=== PATIENT | male | born 1955 | race Caucasian/White ===

== ENCOUNTER 2018-04-29 07:48 | Inpatient (IN) ==
[2018-04-29] MEDS ORDERED: Vancomycin Inj 1,000 MG in Sodium Chlor 0.9% Inj 250 ML IV.SIG ONE (08:15)
[2018-04-29] MEDS ORDERED: Piperacil/Tazo 3.375 GM Premix 3.375 GM/50 ML PIGGYBACK IV.SIG ONE (08:17)
--- NOTE | 2018-04-29 08:28 | ED ---
HPI General Chief complaint: Urogenital-Male Stated complaint: Genital complaint Time Seen by Provider: 04/29/18 08:07 Source: patient Mode of arrival: ambulatory Limitations: no limitations History of Present Illness HPI Narrative: 62-year-old male complaint pain and swelling on the right scrotum. Patient was admitted to [facility] March 19 and discharge March 22 with diagnosis of orchitis. Patient was seen in emergency room as outpatient on March 10 with diagnosis of bronchitis. Patient discharged home with prescription for Levaquin and later switched to Macrobid. Patient was seen by urologist subsequently and put on Bactrim DS. Patient eventually was admitted to [facility] on March 19 for IV antibiotic. Patient was given IV Cipro and discharged on prescription for Cipro 500 mg 3 times a day for 1 month. Patient was seen by Dr. Junior 2 days ago because of blister forming and has pus drainage from the right scrotum recently. Patient was advised to go back to the hospital to be admitted. Patient finally came to the ED today. Patient denies any fever chills. Patient states that he has intermittent sharp pain localized to right scrotum. Patient denies any pain radiation. Patient denies any dysuria or urethral discharge. Patient has history of hypertension and hyperlipidemia. MD Complaint: Reports testicle pain and testicle swelling Onset (ago): week(s) Duration: constant Location: Reports right testicle Severity: mild Quality: Reports sharp Relieving factors: none Exacerbating factors: none Reports swelling and mass Related Data Home Medications Medication Instructions Recorded Confirmed benazepril 40 mg PO BID 03/10/18 04/29/18 lovastatin 10 mg PO DAILY 03/19/18 04/29/18 temazepam 30 mg PO HS PRN 03/20/18 04/29/18 Previous Rx's Medication Instructions Recorded amlodipine 10 mg PO DAILY #30 tab 03/22/18 Allergies Allergy/AdvReac Type Severity Reaction Status Date / Time No Known Allergies Allergy Verified 04/29/18 08:02 Review of Systems ROS: all other systems reviewed are negative [facility] Medical History Medical History HTN (hypertension) (Acute) High cholesterol (Acute) Surgical History Surgical History No history of previous surgery (Acute) Social History Social History Substance History: No History of Abuse Second Hand Smoke Exposure: No Smoking Status: Never smoker How Often Do You Have a Drink Containing Alcohol: Never Recent Travel in [place] within the Last 8 Weeks: No Recent Out of Country Travel within the Last 8 Weeks: No Immunization History Tetanus Immunization: Unsure Exam Narrative Exam Narrative: GENERAL: Well-nourished, well-developed patient. SKIN: Focused skin assessment warm/dry. HEAD: Normocephalic. EYES: No scleral icterus. No injection or drainage. NECK: Supple, trachea midline. No JVD or lymphadenopathy. CARDIOVASCULAR: Regular rate and rhythm without murmurs, gallops, or rubs. RESPIRATORY: Breath sounds equal bilaterally. No accessory muscle use. GASTROINTESTINAL: Abdomen soft, non-tender, nondistended. MUSCULOSKELETAL: No cyanosis, or edema. BACK: Nontender without obvious deformity. No CVA tenderness. exam: Patient has soft tissue mass right scrotum with 2 ulcer lesions with drainage. Moderate tenderness on palpation. Course Initial Documented Vital Signs Temperature 98.1 F 04/29/18 07:50 Pulse Rate 77 04/29/18 07:50 Respiratory Rate 17 04/29/18 07:50 Blood Pressure 160/91 H 04/29/18 07:50 Pulse Oximetry 98 04/29/18 07:50 Last Documented Vital Signs Temperature 98.1 F 04/29/18 07:50 Pulse Rate 60 04/29/18 11:49 Respiratory Rate 16 04/29/18 11:49 Blood Pressure 170/94 H 04/29/18 11:49 Pulse Oximetry 99 04/29/18 09:28 Medical Decision Making MDM Narrative Medical decision making narrative: 62-year-old male with pain swelling and drainage right scrotum. Patient with history of right orchitis and just finished Cipro antibiotic treatment. Vancomycin 1 g IV. Zosyn 3.375 g IV. Medical Screen Exam Complete: Yes Emergency Medical Condition: Yes Differential Diagnosis Differential Diagnosis: Differential diagnosis including cellulitis, abscess, orchitis. Lab Data Result diagrams: 04/29/18 08:27 04/29/18 08:27 Lab Results 04/29/18 04/29/18 04/29/18 Range/Units 08:27 08:27 11:59 WBC 6.0 (4.0-11.0) th/mm3 RBC 5.29 (4.50-5.90) mil/mm3 Hgb 16.2 (13.0-17.0) gm/dL Hct 47.9 (39.0-51.0) % MCV 90.7 (80.0-100.0) fL MCH 30.6 (27.0-34.0) pg MCHC 33.8 (32.0-36.0) % RDW 14.7 (11.6-17.2) % Plt Count 223 (150-450) th/mm3 MPV 8.7 (7.0-11.0) fL Neut % (Auto) 74.9 H (16.0-70.0) % Lymph % (Auto) 16.9 (9.0-44.0) % [place] % (Auto) 5.5 (0.0-8.0) % Eos % (Auto) 1.5 (0.0-4.0) % Baso % (Auto) 1.2 (0.0-2.0) % Neut # (Auto) 4.5 (1.8-7.7) th/mm3 Lymph # (Auto) 1.0 (1.0-4.8) th/mm3 [place] # (Auto) 0.3 (0.0-0.9) th/mm3 Eos # (Auto) 0.1 (0.0-0.4) th/mm3 Baso # (Auto) 0.1 (0.0-0.2) th/mm3 WBC Differential . Differential Comment Auto diff final Sodium 142 (136-145) meq/L Potassium 3.6 (3.5-5.1) meq/L Chloride 110 H (98-107) meq/L Carbon Dioxide 23.5 (21.0-32.0) meq/L Anion Gap 9 (5-15) meq/L BUN 20 H (7-18) mg/dL Creatinine 1.01 (0.60-1.30) mg/dL Estimated GFR 74 L (>89) mL/min Random Glucose 85 (74-106) mg/dL Calcium 9.3 (8.5-10.1) mg/dL Total Bilirubin 0.8 (0.2-1.0) mg/dL AST 17 (15-37) U/L ALT 28 (12-78) U/L Alkaline Phosphatase 97 (45-117) U/L Total Protein 8.2 (6.4-8.2) g/dL Albumin 4.2 (3.4-5.0) g/dL Urine Color Straw (Yellw/Straw) Urine Clarity Clear (Clear) Urine pH 7.0 (5.0-8.5) Ur Specific [place] 1.014 (1.002-1.035) Urine Protein Negative (Neg-Trace) mg/dL Urine Glucose (UA) Negative (Negative) mg/dL Urine Ketones Negative (Negative) mg/dL Urine Occult Blood Negative (Negative) Urine Nitrate Negative (Negative) Urine Bilirubin Negative (Negative) Urine Urobilinogen Less than 2 (Less than 2) mg/dL Ur Leukocyte Esterase Negative (Negative) Urine RBC Less than 1 (0-3) /hpf Urine WBC 1 (0-5) /hpf Ur Squamous Epith Cells <1 (0-5) /hpf Urine Mucus Few H (Occasional) /lpf Micro UA Comment Culture not ind Ur Microscopic Review Not Reportable Urine Culture Comments Culture not ind Imaging Data Radiologist's impression: Scrotum Ultrasound 04/29/18 08:18 CONCLUSION: 1. Abnormal right testicle. Neoplasm is suspected 2. Normal left testicle Discharge Plan Discharge Disposition Patient Disposition: ED Admit(ED Internal Use Only) Discharge Order Discharge Orders: ED Use Only Admit Order (Routine); Ordered 04/29/18 Ordered By: Efrain Lee Discharge Details Diagnosis: Mass of right testicle, Orchitis Physicians Team ED Provider: Efrain Lee Primary Care Provider: Elia Calabrese Attending Provider: Zuhair Acevedo Other Providers: Jaret Amezquita Discharge Interventions Interventions: Vital Signs Last Done: 04/29/18 09:28 ED Discharge Assessment Last Done: 04/29/18 16:25 Status ED Status: Admitted Patient
[2018-04-29 08:43] LABS: Baso # (Auto) 0.1 th/mm3 (0.0-0.2); Baso % (Auto) 1.2 % (0.0-2.0); Eos # (Auto) 0.1 th/mm3 (0.0-0.4); Eos % (Auto) 1.5 % (0.0-4.0); Hematocrit 47.9 % (39.0-51.0); Hemoglobin 16.2 gm/dL (13.0-17.0); Lymph % (Auto) 16.9 % (9.0-44.0); Mean Corpuscular HGB Conc 33.8 % (32.0-36.0); Mean Corpuscular Hemoglobin 30.6 pg (27.0-34.0); Mean Corpuscular Volume 90.7 fL (80.0-100.0); Mean Platelet Volume 8.7 fL (7.0-11.0); Mono # (Auto) 0.3 th/mm3 (0.0-0.9); Mono % (Auto) 5.5 % (0.0-8.0); Neut # (Auto) 4.5 th/mm3 (1.8-7.7); Neut % (Auto) 74.9 % (16.0-70.0); Platelet Count 223 th/mm3 (150-450); Red Blood Count 5.29 mil/mm3 (4.50-5.90); Red Cell Distribution Width 14.7 % (11.6-17.2)
[2018-04-29 09:00] LABS: Alanine Aminotransferase 28 U/L (12-78); Albumin 4.2 g/dL (3.4-5.0); Anion Gap 9 meq/L (5-15); Aspartate Aminotransferase 17 U/L (15-37); Blood Urea Nitrogen 20 mg/dL (7-18); Calcium 9.3 mg/dL (8.5-10.1); Carbon Dioxide 23.5 meq/L (21.0-32.0); Chloride 110 meq/L (98-107); Glomerular Filtration Rate 74 mL/min (>89); Glucose,Random 85 mg/dL (74-106); Potassium 3.6 meq/L (3.5-5.1); Sodium 142 meq/L (136-145)
[2018-04-29 09:03] LABS: Alkaline Phosphatase 97 U/L (45-117); Total Protein 8.2 g/dL (6.4-8.2)
--- NOTE | 2018-04-29 10:34 | US ---
EXAM DATE: 04/29/2018 10:15 AM EST AGE/SEX: 62 years / Male INDICATIONS: Right testicular mass with pain and swelling. CLINICAL DATA: This is the patient's subsequent encounter. Patient reports that signs and symptoms h ave been present for 1 month and indicates a pain score of 6/10. MEDICAL/SURGICAL HISTORY: . Hyperlipidemia. Hypertension. None. COMPARISON: [facility] [place], US TESTICLES W DOPPLER, 03/20/2018. . MEASUREMENTS: Right Testicle:__5.6 x 3.3 x 3.7 cm Left Testicle:__4.2 x 2.4 x 3.0 cm FINDINGS: RIGHT: Diffusely heterogeneous right testicle with hyperemia. Focal mass is suspected that appears to have s pread beyond the testicle.. Trace hydrocele LEFT: Testicle: Homogeneous echotexture without intra or extratesticular mass. Blood flow is symmetric and within normal limits. Epididymis: Within normal limits. Hydrocele: Small hydrocele present. Varicocele: No evidence of varicocele. Scrotum: Diffuse thickening of scrotal skin. CONCLUSION: 1. Abnormal right testicle. Neoplasm is suspected 2. Normal left testicle Electronically signed by: Mp Vaughn MD Board Certified Radiologist 04/29/2018 10:33 AM EST
[2018-04-29] MEDS ORDERED: Acetaminophen 325 MG Tablet PO PRN (11:49)
[2018-04-29] MEDS ORDERED: Vancomycin Consult Pharmacy OTHER PRN (11:51)
--- NOTE | 2018-04-29 11:52 | P.HPIM ---
History of Present Illness Primary Care Physician: Elia Calabrese MD Chief Complaint: infection of the right scotum History of Present Illness: patient is a 62 y/o male with history of hypertension and dyslipidemia who presented with infection of the right scrotum. he says that it started about a month and half ago when he was diagnosed with orchitis. he says that he was treated with IV antibiotics and then he was placed on a month of Cipro which he finished about ten seven-eight days ago. he says that few days ago he noticed some drainage from the right scrotum for which he saw who advised him to come to the hospital. he denies any fever,chills or pain. Inpatient Certification Inpatient Certification: I certify that the inpatient services were ordered in accordance with Medicare regulations governing the order. This includes certification that hospital inpatient services are reasonable and necessary and in the case of services not specified as inpatient-only under 42 CFR 419.22(n), that they are appropriately provided as inpatient services in accordance to with the 2-midnight benchmark under 43 CFR 412.3(e) Estimated Total Length of Stay (Days): 2 Plans for Post Hospital Care: Home Review of Systems Review of Systems: all other systems reviewed are negative [facility] Medical History Medical History HTN (hypertension) (Acute) High cholesterol (Acute) Surgical History Surgical History No history of previous surgery (Acute) Social History Social History Substance History: No History of Abuse Second Hand Smoke Exposure: No Smoking Status: Never smoker How Often Do You Have a Drink Containing Alcohol: Never Recent Travel in [place] within the Last 8 Weeks: No Recent Out of Country Travel within the Last 8 Weeks: No Immunization History Tetanus Immunization: Unsure Medications and Allergies Allergies Allergy/AdvReac Type Severity Reaction Status Date / Time No Known Allergies Allergy Verified 04/29/18 08:02 Home Medications Medication Instructions Recorded Confirmed Type benazepril 40 mg PO BID 03/10/18 04/29/18 History lovastatin 10 mg PO DAILY 03/19/18 04/29/18 History temazepam 30 mg PO HS PRN 03/20/18 04/29/18 History Active Medications: Active Medications Acetaminophen (Tylenol) 650 mg PO Q4H PRN PRN Reason: fever/pain Sodium Chloride (Ns Inj) 1,000 mls @ 100 mls/hr IV.CONT .Q10H [place] Physical Exam Vital signs: Vital Signs 04/29/18 07:50 04/29/18 09:28 Temperature 98.1 F Pulse Rate 77 52 L Respiratory Rate 17 16 Blood Pressure 160/91 H 164/94 H Pulse Oximetry 98 99 Intake & Output 04/28/18 04/29/18 04/29/18 18:59 06:59 18:59 Intake Total 300 / 300 Balance 300 / 300 Weight 72.575 kg Intake: IV 300 / 300 Zosyn 3.375 GM Premix 3.375 gm 50 / 50 In 50 ml @ 100 mls/hr IV.SIG ONCE ONE Rx#:[id number] Vancomycin Inj 1,000 MG In NS 250 / 250 Inj 250 ML @ 250 mls/hr IV.SIG ONCE ONE Rx#:[id number] Constitutional no acute distress Routine HEENT Exam Eye: Present PERRL Routine Neck Exam Present supple Routine Respiratory Exam Present CTA bilaterally Routine Cardiovascular Exam Present RRR Routine Abdominal Exam Present soft Routine Exam Scrotal: Present swelling and erythema Comments: right scrotum is swollen with mild drainage. Routine Extremities Exam Comments: no pedal edema. Routine Neurological Exam Present alert and oriented X3 Results Labs CBC & Chem 7: 04/29/18 08:27 04/29/18 08:27 Imaging Impressions Scrotum Ultrasound 04/29/18 08:18 CONCLUSION: 1. Abnormal right testicle. Neoplasm is suspected 2. Normal left testicle Caprini VTE Risk Assessment Caprini VTE Risk Assessment: Moderate/High Risk (score >= 2) Caprini Risk Assessment Model: Point Value = 1 Point Value = 2 Point Value = 3 Point Value = 5 Age 41-60 Minor surgery BMI > 25 kg/m2 Swollen legs Varicose veins or History of unexplained or recurrent spontaneous Oral contraceptives or hormone replacement Sepsis (< 1 month) Serious lung disease, including pneumonia (< 1 month) Abnormal pulmonary function Acute myocardial infarction Congestive heart failure (< 1 month) History of inflammatory bowel disease Medical patient at bed rest Age 61-74 Arthroscopic surgery Major open surgery (> 45 min) Laparoscopic surgery (> 45 min) Malignancy Confined to bed (> 72 hours) Immobilizing plaster cast Central venous access Age >= 75 History of VTE Family history of VTE Factor V Leiden Prothrombin [id number] Lupus anticoagulant Anticardiolipin antibodies Elevated serum homocysteine Heparin-induced thrombocytopenia Other congenital or acquired thrombophilia Stroke (< 1 month) Elective arthroplasty Hip, pelvis, or leg fracture Acute spinal cord injury (< 1 month) Prophylaxis Regimen: Total Risk Factor Score Risk Level Prophylaxis Regimen 0-1 Low Early ambulation 2 Moderate Order ONE of the following: *Sequential Compression Device (SCD) *Heparin 5000 units SQ BID 3-4 Higher Order ONE of the following medications: *Heparin 5000 units SQ TID *Enoxaparin/Lovenox 40 mg SQ daily (WT < 150 kg, CrCl > 30 mL/min) *Enoxaparin/Lovenox 30 mg SQ daily (WT < 150 kg, CrCl > 10-29 mL/min) *Enoxaparin/Lovenox 30 mg SQ BID (WT < 150 kg, CrCl > 30 mL/min) AND/OR *Sequential Compression Device (SCD) 5 or more Highest Order ONE of the following medications: *Heparin 5000 units SQ TID (Preferred with Epidurals) *Enoxaparin/Lovenox 40 mg SQ daily (WT < 150 kg, CrCl > 30 mL/min) *Enoxaparin/Lovenox 30 mg SQ daily (WT < 150 kg, CrCl > 10-29 mL/min) *Enoxaparin/Lovenox 30 mg SQ BID (WT < 150 kg, CrCl > 30 mL/min) AND *Sequential Compression Device (SCD) Assessment and Plan Plan A/P - possible right testicular neoplasm vs orchitis continue with broad-spectrum IV antibiotics and follow the cultures. will consult Urology. patient has been recently treated for orchitis. -hypertension/ dyslipidemia resume home meds. -DVT prophylaxis; subq Lovenox. Discussed Condition With: ER physician and the patient. Discharge Planning: home - pending urology evaluation.
[2018-04-29] MEDS: Sod Chloride 0.9% Inj 1,000 ML IV.CONT SCH ×2 (11:59→21:34)
[2018-04-29 12:19] LABS: Bilirubin,Urine Negative (Negative); Clarity,Urine Clear (Clear); Color,Urine Straw (Yellw/Straw); Glucose,Urine (UA) Negative (Negative); Leukocyte Esterase,Urine Negative (Negative); Mucus,Urine Few /lpf (Occasional); Nitrite,Urine Negative (Negative); Specific Gravity,Urine 1.014 (1.002-1.035); Squamous Epithelial Cell,Urine <1 /hpf (0-5)
[2018-04-29] MEDS: Lisinopril 20 MG Tablet PO SCH (12:47)
[2018-04-29] MEDS: Piperacil/Tazo 3.375 GM Premix 3.375 GM/50 ML PIGGYBACK IV.SIG SCH ×2 (14:54→21:33)
[2018-04-29] MEDS: Temazepam 15 MG Capsule PO PRN (21:33)
[2018-04-29] MEDS: Vancomycin Inj 1,250 MG in Sodium Chlor 0.9% Inj 250 ML IV.SIG SCH (21:34)
--- NOTE | 2018-04-29 22:48 | P.CONURO ---
History of Present Illness Service: Med Consult date: 04/29/18 Requesting Physician: Zuhair Acevedo Reason for Consult: Orchitis, draining pus, RT scrotum Primary Care Provider: Elia Calabrese MD Chief Complaint: infection of the right scotum History of Present Illness: Admitted from ED with hard, painless swelling of RT testicle and cord and purulent drainage from RT scrotum. Was Rxed in 2018 [place] x 3-4 days with IV antibiotics for orchitis. Had more swelling then than now. He was followed by Urologist, Dr. Rob Diaz then. No problem with LFT testicle, groins, or abdomen. Testicular US shows a heterogeneous RT testicle with distorted anatomy in and outside of the testicle. Possible mass effect. LFT testicle WNL. Patient in no pain, afebrile, not septic. WBC WNL. UA Neg. [place] Neg. 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 His Medicare A&B start in 6 days. [facility] - History History Provided By: Patient, Medical Record - Medical History Medical History: Medical History (Last Reviewed 04/29/18 @ 11:56 by Zuhair Acevedo MD) HTN (hypertension) High cholesterol - Surgical History Surgical History: Surgical History (Last Reviewed 04/29/18 @ 11:56 by Zuhair Acevedo MD) No history of previous surgery - Social History I have reviewed the patient's Social History: Yes - Tobacco History Second Hand Smoke Exposure: No Smoking Status: Never smoker - Alcohol History How Often Do You Have a Drink Containing Alcohol: Never - Substance Use History Substance History: No History of Abuse - Travel History Recent Travel in the [place] Within the Last 8 Weeks: No Recent Travel Out of the Country Within the Last 8 Weeks: No - Immunization History Tetanus Immunization: Unsure Hx Influenza Vaccine This Season: No Medications and Allergies Active Medications: Active Medications Acetaminophen (Tylenol) 650 mg PO Q4H PRN PRN Reason: fever/pain Amlodipine Besylate (Norvasc) 10 mg PO DAILY [place] Enalaprilat (Vasotec Inj) 1.25 mg IV.PUSH Q8H PRN PRN Reason: SBP> 180 or DBP > 100 Last Admin: 04/29/18 18:19 Dose: 1.25 mg Sodium Chloride (Ns Inj) 1,000 mls @ 100 mls/hr IV.CONT .Q10H [facility] Last Admin: 04/29/18 21:34 Dose: 100 mls/hr Piperacillin/Tazobactam/Dextrose (Zosyn 3.375 Gm Premix) 3.375 gm in 50 mls @ 100 mls/hr IV.SIG Q8H [place] Last Admin: 04/29/18 21:33 Dose: 100 mls/hr Vancomycin HCl 1,250 mg/ (Sodium Chloride) 262.5 mls @ 250 mls/hr IV.SIG Q18H [facility] Last Admin: 04/29/18 21:34 Dose: 250 mls/hr Lisinopril (Prinivil) 40 mg PO DAILY [facility] Last Admin: 04/29/18 12:47 Dose: 40 mg Miscellaneous Information ([facility] Ordered Lab Info) 1 each OTHER ONCE ONE Stop: 05/02/18 02:46 Pharmacy Profile Note (Vancomycin Consult Pharmacy) 1 each OTHER UNSCH PRN PRN Reason: Pharmacy to dose Pravastatin Sodium (Pravachol) 10 mg PO DAILY [facility] Temazepam (Restoril) 30 mg PO HS PRN PRN Reason: INSOMNIA Last Admin: 04/29/18 21:33 Dose: 30 mg Allergies Allergy/AdvReac Type Severity Reaction Status Date / Time No Known Allergies Allergy Verified 04/29/18 08:02 Home Medications Medication Instructions Recorded Confirmed Type benazepril 40 mg PO BID 03/10/18 04/29/18 History lovastatin 10 mg PO DAILY 03/19/18 04/29/18 History temazepam 30 mg PO HS PRN 03/20/18 04/29/18 History Physical Exam Vital Signs - 24 hr 04/29/18 07:50 04/29/18 09:28 04/29/18 11:49 Temperature 98.1 F Pulse Rate 77 52 L 60 Respiratory Rate 17 16 16 Blood Pressure 160/91 H 164/94 H 170/94 H Pulse Oximetry 98 99 04/29/18 16:00 04/29/18 20:00 Temperature 97.8 F 97.3 F L Pulse Rate 67 61 Respiratory Rate 17 20 Blood Pressure 204/106 H 152/90 H Pulse Oximetry 98 96 Physical Exam: GENERAL: This is a well-nourished, well-developed patient, in no apparent distress. SKIN: No rashes, ecchymoses or lesions. Cool and dry. HEAD: Atraumatic. Normocephalic. No temporal or scalp tenderness. EYES: Pupils equal round and reactive. Extraocular motions intact. No scleral icterus. No injection or drainage. ENT: Nose without bleeding, purulent drainage or septal hematoma. Throat without erythema, tonsillar hypertrophy or exudate. Uvula midline. Airway patent. NECK: Trachea midline. No JVD or lymphadenopathy. Supple, nontender, no meningeal signs. CARDIOVASCULAR: RESPIRATORY: GASTROINTESTINAL: Abdomen soft, non-tender, nondistended. No hepato-splenomegaly , or palpable masses. No guarding. GENITOURINARY: EXT. GENITALIA: RT scrotum: red, firm, enlarged, pus draining out one area, soft fluctuance in adjacent area. CORD: firm, enlarged. LFT: Testicle, cord WNL. PENIS: WNL. MUSCULOSKELETAL: Extremities without clubbing, cyanosis, or edema. No joint tenderness, effusion, or edema noted. No calf tenderness. NEUROLOGICAL: Awake and alert. Cranial nerves II through XII intact. Motor and sensory grossly within normal limits. Normal speech. Lab results reviewed: Yes Laboratory Results - last 24 hr 04/29/18 04/29/18 04/29/18 08:27 08:27 11:59 WBC 6.0 RBC 5.29 Hgb 16.2 Hct 47.9 MCV 90.7 MCH 30.6 MCHC 33.8 RDW 14.7 Plt Count 223 MPV 8.7 Neut % (Auto) 74.9 H Lymph % (Auto) 16.9 [place] % (Auto) 5.5 Eos % (Auto) 1.5 Baso % (Auto) 1.2 Neut # (Auto) 4.5 Lymph # (Auto) 1.0 [place] # (Auto) 0.3 Eos # (Auto) 0.1 Baso # (Auto) 0.1 WBC Differential . Differential Comment Auto diff final Sodium 142 Potassium 3.6 Chloride 110 H Carbon Dioxide 23.5 Anion Gap 9 BUN 20 H Creatinine 1.01 Estimated GFR 74 L Random Glucose 85 Calcium 9.3 Total Bilirubin 0.8 AST 17 ALT 28 Alkaline Phosphatase 97 Total Protein 8.2 Albumin 4.2 Urine Color Straw Urine Clarity Clear Urine pH 7.0 Ur Specific [place] 1.014 Urine Protein Negative Urine Glucose (UA) Negative Urine Ketones Negative Urine Occult Blood Negative Urine Nitrate Negative Urine Bilirubin Negative Urine Urobilinogen Less than 2 Ur Leukocyte Esterase Negative Urine RBC Less than 1 Urine WBC 1 Ur Squamous Epith Cells <1 Urine Mucus Few H Micro UA Comment Culture not ind Ur Microscopic Review Not Reportable Urine Culture Comments Culture not ind Result Diagrams: 04/29/18 08:27 04/29/18 08:27 Personally reviewed images: Yes Imaging: ITS Impressions Scrotum Ultrasound 04/29/18 08:18 CONCLUSION: 1. Abnormal right testicle. Neoplasm is suspected 2. Normal left testicle Assessment and Plan - Assessment (1) Testicular abscess Code(s): N45.4 - Abscess of epididymis or testis Status: Acute Onset Date: ~ 03/16/18 (2) Abscess of scrotum Code(s): N49.2 - Inflammatory disorders of scrotum Status: Acute Onset Date : ~04/27/18 - Plan The orchitis Rxed one month ago progressed to a testicular abcess now draining thru the scrotum. The testicle and cord should be surgically removed eventually. In the meantime, an I&D would help drain the abcess and reduce the scrotal inflammation. Patient is very reluctant to consider surgical orchiectomy; he prefers I&D so he can continue working. Because Dr. Diaz managed the orchitis in he wants to wait to see Dr. Diaz again on Tuesday to get his opinion. PLAN: will examine and discuss with patient again tomorrow. He is told to not eat breakfast if he wants an I&D in the OR tomorrow. Also, awaiting the C&S of the scrotal drainage. Discussed Condition With: Patient, Dr. Lee.
[2018-04-30] MEDS: Piperacil/Tazo 3.375 GM Premix 3.375 GM/50 ML PIGGYBACK IV.SIG SCH ×3 (06:00→21:55)
[2018-04-30] MEDS: Lisinopril 20 MG Tablet PO SCH (08:18)
[2018-04-30] MEDS: amLODIPine 10 MG Tablet PO SCH (08:18)
--- NOTE | 2018-04-30 11:26 | P.PNURO ---
Subjective Patient symptoms today: No new symptoms. No Pain in RT scrotum or testicle. Purulent drainage stopped. Afebrile. Pus gram stain: WBCs, no bacteria seen. C&S pending. Patient ate breakfast. He plans to wait for Dr. Rob Diaz to see him tomorrow. Objective Vital Signs: Vital Signs 04/29/18 11:49 04/29/18 16:00 04/29/18 20:00 Temperature 97.8 F 97.3 F L Pulse Rate 60 67 61 Respiratory Rate 16 17 20 Blood Pressure 170/94 H 204/106 H 152/90 H Pulse Oximetry 98 96 04/30/18 00:00 04/30/18 04:00 04/30/18 08:00 Temperature 97.7 F 97.7 F 97.3 F L Pulse Rate 57 L 52 L 58 L Respiratory Rate 20 18 16 Blood Pressure 170/94 H 160/91 H 162/93 H Pulse Oximetry 97 96 98 Intake & Output 04/29/18 04/30/18 04/30/18 18:59 06:59 18:59 Intake Total 750 / 750 1652.5 / 1652.5 Balance 750 / 750 1652.5 / 1652.5 Weight 72.575 kg 68.7 kg Intake: IV 750 / 750 1412.5 / 1412.5 NS Inj 1,000 ML @ 100 mls/hr IV 400 / 400 1050 / 1050 .CONT .Q10H [facility] Rx#:[id number] Zosyn 3.375 GM Premix 3.375 gm 100 / 100 100 / 100 In 50 ml @ 100 mls/hr IV.SIG Q8H [facility] Rx#:[id number] Vancomycin Inj 1,000 MG In NS 250 / 250 Inj 250 ML @ 250 mls/hr IV.SIG ONCE ONE Rx#:[id number] Vancomycin Inj 1,250 MG In NS 262.5 / 262.5 Inj 250 ML @ 250 mls/hr IV.SIG Q18H [facility] Rx#:[id number] Oral 240 / 240 Other: # Voids 5 Date of Last Bowel Movement 04/29/18 04/29/18 Result Diagrams: 04/29/18 08:27 04/29/18 08:27 Medications and IVs: Active Medications Generic Name Dose Route Start Last Admin Trade Name Freq PRN Reason Stop Dose Admin Acetaminophen 650 mg 04/29/18 11:49 Tylenol PO Q4H PRN fever/pain Amlodipine Besylate 10 mg 04/30/18 09:00 04/30/18 08:18 Norvasc PO 10 mg DAILY [facility] Administration Enalaprilat 1.25 mg 04/29/18 17:30 04/29/18 18:19 Vasotec Inj IV.PUSH 1.25 mg Q8H PRN Administration SBP> 180 or DBP > 100 Sodium Chloride 1,000 mls @ 100 mls/hr 04/29/18 11:50 04/30/18 06:01 Ns Inj IV.CONT 100 mls/hr .Q10H [facility] In[facility] Piperacillin/Tazobactam/Dextrose 3.375 gm in 50 mls @ 100 mls/hr 04/29/18 14: 00 04/30/18 06:40 Zosyn 3.375 Gm Premix IV.SIG Infused Q8H [facility] Vancomycin HCl 1,250 mg/ 262.5 mls @ 250 mls/hr 04/29/18 21:00 04/29/18 22:59 Sodium Chloride IV.SIG Infused Q18H [facility] Lisinopril 40 mg 04/29/18 13:00 04/30/18 08:18 Prinivil PO 40 mg DAILY [facility] Administration Miscellaneous Information 1 each 05/02/18 02:45 [facility] Ordered Lab Info OTHER 05/02/18 02:46 ONCE ONE Pharmacy Profile Note 1 each 04/29/18 11:51 Vancomycin Consult Pharmacy OTHER [facility] Pharmacy to dose Pravastatin Sodium 10 mg 04/30/18 09:00 04/30/18 08:18 Pravachol PO 10 mg DAILY [facility] Administration Temazepam 30 mg 04/29/18 21:00 04/29/18 21:33 Restoril PO 30 mg HS PRN Administration INSOMNIA Objective Remarks: Exam same as yesterday except no longer draining pus. Assessment and Plan - Assessment (1) Testicular abscess Code(s): N45.4 - Abscess of epididymis or testis Status: Acute Onset Date: ~ 03/16/18 (2) Abscess of scrotum Code(s): N49.2 - Inflammatory disorders of scrotum Status: Acute Onset Date : ~04/27/18 - Plan 04/29/18: The orchitis Rxed one month ago progressed to a testicular abcess now draining thru the scrotum. The testicle and cord should be surgically removed eventually. In the meantime, an I&D would help drain the abcess and reduce the scrotal inflammation. Patient is very reluctant to consider surgical orchiectomy; he prefers I&D so he can continue working. Because Dr. Diaz managed the orchitis in Mar. he wants to wait to see Dr. Diaz again on Tuesday to get his opinion. PLAN: will examine and discuss with patient again tomorrow. He is told to not eat breakfast if he wants an I&D in the OR tomorrow. Also, awaiting the C&S of the scrotal drainage. 04/30/18: No significant change from yesterday. PLAN: Dr. Rob Diaz to see patient tomorrow. Discussed Condition With: Patient. Dr. Diaz. Discharge Planning: Per patient and Dr. Diaz.
--- NOTE | 2018-04-30 12:12 | P.PNIM ---
Subjective Interval history: Patient sitting down at the edge of the bed. No acute distress. He is eating lunch at the moment. No other complaints. Physical Exam Vital signs: Vital Signs 04/29/18 16:00 04/29/18 20:00 04/30/18 00:00 Temperature 97.8 F 97.3 F L 97.7 F Pulse Rate 67 61 57 L Respiratory Rate 17 20 20 Blood Pressure 204/106 H 152/90 H 170/94 H Pulse Oximetry 98 96 97 04/30/18 04:00 04/30/18 08:00 Temperature 97.7 F 97.3 F L Pulse Rate 52 L 58 L Respiratory Rate 18 16 Blood Pressure 160/91 H 162/93 H Pulse Oximetry 96 98 Intake & Output 04/29/18 04/30/18 04/30/18 18:59 06:59 18:59 Intake Total 750 / 750 1652.5 / 1652.5 Balance 750 / 750 1652.5 / 1652.5 Weight 72.575 kg 68.7 kg Intake: IV 750 / 750 1412.5 / 1412.5 NS Inj 1,000 ML @ 100 mls/hr IV 400 / 400 1050 / 1050 .CONT .Q10H [facility] Rx#:[id number] Zosyn 3.375 GM Premix 3.375 gm 100 / 100 100 / 100 In 50 ml @ 100 mls/hr IV.SIG Q8H [facility] Rx#:[id number] Vancomycin Inj 1,000 MG In NS 250 / 250 Inj 250 ML @ 250 mls/hr IV.SIG ONCE ONE Rx#:[id number] Vancomycin Inj 1,250 MG In NS 262.5 / 262.5 Inj 250 ML @ 250 mls/hr IV.SIG Q18H [facility] Rx#:[id number] Oral 240 / 240 Other: # Voids 5 Date of Last Bowel Movement 04/29/18 04/29/18 Narrative: Alert and oriented x 3 S1S2 CTA b/l abd soft, nontender, normal bowel sounds Right testicle hard, with what appears to be dried previous drainage, not actively draining. No palpable inguinal lymphadenopathy No neuro deficits. Results Labs CBC & Chem 7: 04/29/18 08:27 04/29/18 08:27 Labs: Microbiology 04/29/18 08:30 Abscess - Scrotum Gram Stain - Final 04/29/18 08:30 Abscess - Scrotum Wound Culture - Preliminary Moderate growth normal skin aj at 24 hours. 04/29/18 08:27 Blood - Peripheral Aerobic Blood Culture - Preliminary No growth in 1 day 04/29/18 08:27 Blood - Peripheral Anaerobic Blood Culture - Preliminary No growth in 1 day 04/29/18 08:27 Blood - Peripheral Aerobic Blood Culture - Preliminary No growth in 1 day 04/29/18 08:27 Blood - Peripheral Anaerobic Blood Culture - Preliminary No growth in 1 day Assessment and Plan (1) Testicular abscess: Code(s): N45.4 - Abscess of epididymis or testis Status: Acute Onset Date: ~03/16/18 (2) Abscess of scrotum: Code(s): N49.2 - Inflammatory disorders of scrotum Status: Acute Onset Date: ~04/27/18 Plan This patient is a 62 y/o male with a hx of HTN, DLD, who presented to the ED with complaints of right testicular swelling. Symptoms started a month ago and he was dx at that time with Orchitis. He was noticing some drainage of the right testicle and was advised by Dr. Rivas who advised him to come to the hospital. 1. Right testicular mass/Orchitis Patient is being followed by the Urology service. Dr. Amezquita evaluated the patient today and his recs are for the patient to undergo I and D to drain the abscess and reduce the scrotal inflammation. Patient was previously managed by Dr. Diaz for orchitis in 03/2018 and wants to be seen by him tomorrow as per documentation. Follow up Cx and sensitivity of the scrotal drainage. As per urology, pt will need orchiectomy at some point. Tumor markers ordered, if elevated will discuss with Hem/Onc. Will follow up with urology tomorrow. 2. HTN Continue current meds, Hydralazine added. Lovenox for dvt prophylaxis Progress Note: Quality VTE Deep Vein Thrombosis/Pulmonary Embolism Present on Admission: No
[2018-04-30] MEDS: hydrALAZINE 25 MG Tablet PO SCH ×2 (12:40→17:16)
[2018-04-30] MEDS: Sod Chloride 0.9% Inj 1,000 ML IV.CONT SCH (12:46)
[2018-04-30 15:01] LABS: Lactate Dehydrogenase 163 U/L (87-241)
[2018-04-30 15:04] LABS: Alpha Fetoprotein Tumor Marker 3.2 ng/mL (0.5-8.0)
[2018-04-30] MEDS: Vancomycin Inj 1,250 MG in Sodium Chlor 0.9% Inj 250 ML IV.SIG SCH (15:10)
[2018-04-30] MEDS: Temazepam 15 MG Capsule PO PRN (21:55)
[2018-05-01] MEDS: Piperacil/Tazo 3.375 GM Premix 3.375 GM/50 ML PIGGYBACK IV.SIG SCH ×3 (05:05→23:19)
--- NOTE | 2018-05-01 08:33 | P.PNIM ---
Subjective Interval history: Patient ambulating in his room. No acute distress. No significant events overnight. Physical Exam Vital signs: Vital Signs 04/30/18 12:00 04/30/18 20:00 05/01/18 00:00 Temperature 97.3 F L 98.2 F 97.7 F Pulse Rate 56 L 57 L 56 L Respiratory Rate 17 20 18 Blood Pressure 162/85 H 164/99 H 153/80 H Pulse Oximetry 98 95 97 Intake & Output 04/30/18 05/01/18 05/01/18 18:59 06:59 18:59 Intake Total 312.5 / 312.5 1612 / 1612 Balance 312.5 / 312.5 1612 / 1612 Weight 69 kg Intake: IV 312.5 / 312.5 161 / 1612 LR 1000 mL Inj 1,000 ML @ 100 1512 / 1512 mls/hr IV.CONT .Q10H [facility] Rx#: [id number] NS Inj 1,000 ML @ 100 mls/hr IV 0 / 0 .CONT .Q10H [facility] Rx#:[id number] Zosyn 3.375 GM Premix 3.375 gm 50 / 50 100 / 100 In 50 ml @ 100 mls/hr IV.SIG Q8H [facility] Rx#:[id number] Vancomycin Inj 1,250 MG In NS 262.5 / 262.5 Inj 250 ML @ 250 mls/hr IV.SIG Q18H [facility] Rx#:[id number] Other: # Voids 8 Date of Last Bowel Movement 04/29/18 04/30/18 # Bowel Movements 1 Narrative: Alert and oriented x 3 S1S2 CTA b/l abd soft, nontender, normal bowel sounds Right testicle hard, with what appears to be dried previous drainage, not actively draining. No palpable inguinal lymphadenopathy No neuro deficits. Results Labs CBC & Chem 7: 04/29/18 08:27 04/29/18 08:27 Labs: Microbiology 04/29/18 08:30 Abscess - Scrotum Gram Stain - Final 04/29/18 08:30 Abscess - Scrotum Wound Culture - Preliminary Moderate growth normal skin aj at 24 hours. 04/29/18 08:27 Blood - Peripheral Aerobic Blood Culture - Preliminary No growth in 1 day 04/29/18 08:27 Blood - Peripheral Anaerobic Blood Culture - Preliminary No growth in 1 day 04/29/18 08:27 Blood - Peripheral Aerobic Blood Culture - Preliminary No growth in 1 day 04/29/18 08:27 Blood - Peripheral Anaerobic Blood Culture - Preliminary No growth in 1 day Assessment and Plan (1) Testicular abscess: Code(s): N45.4 - Abscess of epididymis or testis Status: Acute Onset Date: ~03/16/18 (2) Abscess of scrotum: Code(s): N49.2 - Inflammatory disorders of scrotum Status: Acute Onset Date: ~04/27/18 Plan This patient is a 62 y/o male with a hx of HTN, DLD, who presented to the ED with complaints of right testicular swelling. Symptoms started a month ago and he was dx at that time with Orchitis. He was noticing some drainage of the right testicle and was advised by Dr. Rivas who advised him to come to the hospital. 05/01/18 Patient evaluated today. Still has right testicular swelling. Dr. Diaz will evaluate the patient today and likely take the patient to the OR for I and D today or tomorrow. I will follow up with his recommendations. Cx and sensitivity of the drainage will be followed up. Hydralazine dose increased for HTN, continue Norvasc. Monitor and adjust antihypertensives. 1. Right testicular mass/Orchitis Patient is being followed by the Urology service. Dr. Amezquita evaluated the patient today and his recs are for the patient to undergo I and D to drain the abscess and reduce the scrotal inflammation. Patient was previously managed by Dr. Diaz for orchitis in 03/2018 and wants to be seen by him tomorrow as per documentation. Follow up Cx and sensitivity of the scrotal drainage. As per urology, pt will need orchiectomy at some point. Tumor markers ordered, if elevated will discuss with Hem/Onc. Will follow up with urology tomorrow. 2. HTN Continue current meds, Hydralazine added. Lovenox for dvt prophylaxis Progress Note: Quality VTE Deep Vein Thrombosis/Pulmonary Embolism Present on Admission: No
--- NOTE | 2018-05-01 08:59 | P.PNURO ---
Subjective Patient symptoms today: Pt seen and examined. Feels better then upon admission. Objective Vital Signs: Vital Signs 04/30/18 12:00 04/30/18 20:00 05/01/18 00:00 Temperature 97.3 F L 98.2 F 97.7 F Pulse Rate 56 L 57 L 56 L Respiratory Rate 17 20 18 Blood Pressure 162/85 H 164/99 H 153/80 H Pulse Oximetry 98 95 97 Intake & Output 04/30/18 05/01/18 05/01/18 18:59 06:59 18:59 Intake Total 312.5 / 312.5 1612 / 1612 Balance 312.5 / 312.5 161 / 1612 Weight 69 kg Intake: IV 312.5 / 312.5 161 / 1612 LR 1000 mL Inj 1,000 ML @ 100 1512 / 1512 mls/hr IV.CONT .Q10H [facility] Rx#: [id number] NS Inj 1,000 ML @ 100 mls/hr IV 0 / 0 .CONT .Q10H [facility] Rx#:[id number] Zosyn 3.375 GM Premix 3.375 gm 50 / 50 100 / 100 In 50 ml @ 100 mls/hr IV.SIG Q8H [facility] Rx#:[id number] Vancomycin Inj 1,250 MG In NS 262.5 / 262.5 Inj 250 ML @ 250 mls/hr IV.SIG Q18H [facility] Rx#:[id number] Other: # Voids 8 Date of Last Bowel Movement 04/29/18 04/30/18 # Bowel Movements 1 Result Diagrams: 04/29/18 08:27 04/29/18 08:27 Medications and IVs: Active Medications Generic Name Dose Route Start Last Admin Trade Name Freq PRN Reason Stop Dose Admin Acetaminophen 650 mg 04/29/18 11:49 Tylenol PO Q4H PRN fever/pain Amlodipine Besylate 10 mg 04/30/18 09:00 04/30/18 08:18 Norvasc PO 10 mg DAILY [facility] Administration Enalaprilat 1.25 mg 04/29/18 17:30 04/29/18 18:19 Vasotec Inj IV.PUSH 1.25 mg Q8H [facility] Administration SBP> 180 or DBP > 100 Hydralazine HCl 50 mg 05/01/18 09:00 Apresoline PO TID [facility] Piperacillin/Tazobactam/Dextrose 3.375 gm in 50 mls @ 100 mls/hr 04/29/18 14: 00 05/01/18 05:35 Zosyn 3.375 Gm Premix IV.SIG Infused Q8H [facility] Infusion Vancomycin HCl 1,250 mg/ 262.5 mls @ 250 mls/hr 04/29/18 21:00 04/30/18 17:00 Sodium Chloride IV.SIG Infused Q18H [facility] Infusion Lactated Ringer's 1,000 mls @ 100 mls/hr 04/30/18 12:06 05/01/18 05:06 Lr 1000 Ml Inj IV.CONT 100 mls/hr .Q10H [facility] In[facility] Lisinopril 40 mg 04/29/18 13:00 04/30/18 08:18 Prinivil PO 40 mg DAILY [facility] Administration Miscellaneous Information 1 each 05/02/18 02:45 [facility] Ordered Lab Info OTHER 05/02/18 02:46 ONCE ONE Pharmacy Profile Note 1 each 04/29/18 11:51 Vancomycin Consult Pharmacy OTHER [facility] to dose Pravastatin Sodium 10 mg 04/30/18 09:00 04/30/18 08:18 Pravachol PO 10 mg DAILY [facility] Administration Temazepam 30 mg 04/29/18 21:00 04/30/18 21:55 Restoril PO 30 mg HS PRN Administration INSOMNIA Objective Remarks: Exam same as yesterday except no longer draining pus. 05/01 Abd:soft, nt,nd Right hemiscrotum: induration with pus hardened on surface of scrotal skin; no longer actively draining, NT Assessment and Plan - Assessment (1) Testicular abscess Code(s): N45.4 - Abscess of epididymis or testis Status: Acute Onset Date: ~ 03/16/18 (2) Abscess of scrotum Code(s): N49.2 - Inflammatory disorders of scrotum Status: Acute Onset Date : ~04/27/18 - Plan 04/29/18: The orchitis Rxed one month ago progressed to a testicular abcess now draining thru the scrotum. The testicle and cord should be surgically removed eventually. In the meantime, an I&D would help drain the abcess and reduce the scrotal inflammation. Patient is very reluctant to consider surgical orchiectomy; he prefers I&D so he can continue working. Because Dr. Diaz managed the orchitis in Mar. he wants to wait to see Dr. Diaz again on Tuesday to get his opinion. PLAN: will examine and discuss with patient again tomorrow. He is told to not eat breakfast if he wants an I&D in the OR tomorrow. Also, awaiting the C&S of the scrotal drainage. 04/30/18: No significant change from yesterday. PLAN: Dr. Rob Diaz to see patient tomorrow. 05/01 62 y.o male with scrotal abscess Recommend scrotal exploration tomorrow Sitz baths today NPO after MN Discharge Planning: Per patient and Dr. Diaz.
[2018-05-01] MEDS: Vancomycin Inj 1,250 MG in Sodium Chlor 0.9% Inj 250 ML IV.SIG SCH (09:34)
[2018-05-01] MEDS: Lisinopril 20 MG Tablet PO SCH (09:34)
[2018-05-01] MEDS: amLODIPine 10 MG Tablet PO SCH (09:35)
[2018-05-01] MEDS: hydrALAZINE 25 MG Tablet PO SCH ×3 (09:41→18:15)
[2018-05-01] MEDS: Temazepam 15 MG Capsule PO PRN (23:25)
--- NOTE | 2018-05-02 02:44 | MB ---
cc: Ponce Shaw MD DATE: 05/01/2018 REASON FOR CONSULTATION: Consult requested by Dr. Monterroso, hospitalist, for evaluation of possible testicular neoplasm. HISTORY OF PRESENT ILLNESS: Billy is a pleasant 62-year-old male. The patient had developed infection in the right scrotum about a month ago. He was admitted to the hospital. He was evaluated by urologist, Dr. Diaz. He was given the antibiotics. The infection improved and he was discharged to home. Subsequently, the patient noticed some blistering and recurrence of swelling of the right scrotum. He went to see Dr. Jo, urologist. Since there was some drainage that was coming out from the wound in the right scrotum, he was advised to report to the emergency room. The patient is now admitted to the hospital. Urology has been consulted. The patient had a testicular ultrasound with Doppler, which showed abnormal right testicle. Neoplasm is suspected. The left testicle is normal. I have been asked to see the patient for further evaluation. The patient stated that he was re-evaluated by Dr. Diaz, urologist, today. He is scheduled to have surgery tomorrow. Either he will do I and D for the testicular abscess or he may end up getting right orchiectomy. The patient denies any previous history of any testicular masses. The rest of the review of systems is negative. PAST MEDICAL HISTORY: Hypertension, hypercholesterolemia. PAST SURGICAL HISTORY: None. ALLERGIES: NONE. MEDICATIONS: Prior to going to the hospital: Lovastatin, benazepril, and temazepam. FAMILY HISTORY: None for malignancy. SOCIAL HISTORY: The patient does not smoke cigarettes, does not drink alcohol. PHYSICAL EXAMINATION: GENERAL: Reveals a well-developed, well-nourished white male, in no apparent distress. VITAL SIGNS: Temperature 98.4, heart rate 66, blood pressure 136/87. OBJECTIVE: VITAL SIGNS: Stable. Afebrile. HEAD, EYES, EARS, NOSE, AND THROAT: Pupils equal, round, reactive to light and accommodation, extraocular movements intact. Anicteric. No oral lesions noted. No thrush noted. NECK: Supple. No JVD. No masses noted. LUNGS: Clear. No wheezing, rhonchi, or rales. HEART: Regular rate and rhythm. No murmur heard. ABDOMEN: Soft and nontender. No hepatosplenomegaly. No abnormal bowel sounds. No guarding or rigidity noted. EXTREMITIES: No pedal edema. No cyanosis, no clubbing. NEUROLOGIC: Awake, alert, oriented x 3. Sensory and motor seem to be intact. SKIN: No bruises or petechiae noted. BREASTS: No masses noted. LYMPH NODES: No cervical, supraclavicular, or axillary lymphadenopathy noted. BACK: There is no spinal tenderness noted. ASSESSMENT: Right scrotal swelling. Differential is abscess versus neoplasm. PLAN: I have reviewed his available records, and I have discussed with the patient regarding the testicular abnormality noted on the ultrasound. Dr. Diaz, urologist, has reevaluated the patient today and he is scheduled to have I and D of the right scrotal abscess tomorrow morning. Depending on the operative findings, he may need right orchiectomy. I discussed with the patient regarding the tumor markers. The LDH is normal at 163. Alpha fetoprotein is normal at 3.2 and beta hCG is less than 1. We discussed that if he has orchiectomy and if the pathology report shows testicular cancer, then we will discussed with him regarding the treatment. At this point, I will follow him peripherally as this may not be a cancer, and we are just dealing with the abscess. He is scheduled to have surgery tomorrow. The patient has asked questions. I know him as his is one of my patients with breast cancer. Further recommendations based on his hospital stay. Thank you for asking my opinion. MD JIM Murillo/stanford/dea , 10:57 PM , 11:07 PM MARCELLE
[2018-05-02] MEDS ORDERED: Pharmacy Ordered Lab Info OTHER ONE (02:45)
[2018-05-02] MEDS: Vancomycin Inj 1,250 MG in Sodium Chlor 0.9% Inj 250 ML IV.SIG SCH ×2 (04:38→21:15)
[2018-05-02] MEDS: Piperacil/Tazo 3.375 GM Premix 3.375 GM/50 ML PIGGYBACK IV.SIG SCH ×3 (05:53→21:15)
[2018-05-02] MEDS: amLODIPine 10 MG Tablet PO SCH (08:32)
[2018-05-02] MEDS: Lisinopril 20 MG Tablet PO SCH (08:32)
[2018-05-02] MEDS: hydrALAZINE 25 MG Tablet PO SCH ×3 (08:32→15:35)
[2018-05-02] MEDS ORDERED: Lidocaine PF 1% Inj 5 ML Syringe OTHER ONE (12:47)
--- NOTE | 2018-05-02 13:52 | P.OP ---
- Preoperative Diagnosis (1) Testicular abscess - Postoperative Diagnosis (1) Testicular abscess Date of procedure: 05/02/18 Procedure: Right scrotal exploration with washout and debridement Anesthesia: other (General LMA) Surgeon: Rob Diaz DO Estimated blood loss (mL): 5 Pathology: other (Scrotal skin with necrotic tissue) Operation and Findings: 62-year-old male with history of right-sided orchitis last month who was sent home on antibiotics. Patient returned to the emergency room with a scrotal abscess with pus draining from the right hemiscrotum. Decision made to bring the patient to the operating room to undergo scrotal exploration with possible orchiectomy with debridement of necrotic tissue. Risk and benefits were discussed preoperatively and he was willing to proceed. Patient brought the operating room and identified by myself as Billy Stahl. He was prepped and draped you sterile fashion, placed in the frog-leg position and received preprocedure antibiotics. General LMA anesthesia was administered. 15 blade was used to make the opening elliptical incision over the right hemiscrotum. This was dissected off the testicle and the tunica vaginalis was identified. Areas of necrotic tissue were then debrided from this area. Using the Metzenbaum scissors, the testicle proper was dissected circumferentially to free up the surrounding tissues. A washout of Betadine and hydrogen peroxide was then used in the right hemiscrotum. Normal saline irrigation followed. The the necrotic tissue was then been debrided with only viable tissue remaining. Decision was then made to Place Vaseline gauze over the exposed portion of the testicle with wet-to-dry dressings. Scrotal support was then applied. The patient was awoken and extubated transferred recovery in stable condition he tolerated procedure well.
[2018-05-02] MEDS ORDERED: HYDROmorphone PF Inj 4 MG/ML Ampul IV.PUSH PRN (13:54)
[2018-05-02] MEDS ORDERED: fentaNYL Citrate Inj 100 MCG/2 ML Ampul ONE (13:54)
[2018-05-02] MEDS ORDERED: *morphine SULFATE 10 MG/ML PERIprocedure ONLY ONE ×2 (13:57→14:06)
[2018-05-02] MEDS ORDERED: *HYDROmorphone PF Inj 1 MG/ML Ampul PERIprocedural Use ONLY ONE ×2 (14:13→14:34)
--- NOTE | 2018-05-02 14:47 | P.PNIM ---
Subjective Interval history: Patient with some pain of the right testicle. No other complaints. Physical Exam Vital signs: Vital Signs 05/01/18 16:00 05/01/18 20:00 05/02/18 00:00 Temperature 98.4 F 98.2 F 97.7 F Pulse Rate 66 62 63 Respiratory Rate 20 20 20 Blood Pressure 136/87 149/94 H 143/94 H Pulse Oximetry 98 97 95 05/02/18 09:19 05/02/18 11:56 05/02/18 13:46 Temperature 97.8 F 97.6 F 98.0 F Pulse Rate 90 86 54 L Respiratory Rate 18 16 13 Blood Pressure 138/93 H 170/90 H 104/64 Pulse Oximetry 96 95 97 05/02/18 14:00 05/02/18 14:15 05/02/18 14:30 Temperature 98.0 F Pulse Rate 67 66 67 Respiratory Rate 13 15 14 Blood Pressure 119/62 145/88 H 156/89 H Pulse Oximetry 96 97 96 Intake & Output 05/01/18 05/02/18 05/02/18 18:59 06:59 18:59 Intake Total 1640.5 / 1640.5 1362.5 / 1362.5 Output Total 1000 / 1000 Balance 640.5 / 640.5 1362.5 / 1362.5 Weight 68.7 kg Intake: IV 800.5 / 800.5 1362.5 / 1362.5 LR 1000 mL Inj 1,000 ML @ 100 488 / 488 1000 / 1000 mls/hr IV.CONT .Q10H [facility] Rx#: [id number] Zosyn 3.375 GM Premix 3.375 gm 50 / 50 100 / 100 In 50 ml @ 100 mls/hr IV.SIG Q8H [facility] Rx#:[id number] Vancomycin Inj 1,250 MG In NS 262.5 / 262.5 262.5 / 262.5 Inj 250 ML @ 250 mls/hr IV.SIG Q18H [facility] Rx#:[id number] Oral 840 / 840 Output: Urine 1000 / 1000 Other: # Voids 2 Date of Last Bowel Movement 04/30/18 04/30/18 Narrative: Alert and oriented x 3 S1S2 CTA b/l abd soft, nontender, normal bowel sounds Right testicle with gauze s/p drainage. No palpable inguinal lymphadenopathy No neuro deficits. Results Labs CBC & Chem 7: 04/29/18 08:27 05/03/18 06:19 Labs: Microbiology 04/29/18 08:27 Blood - Peripheral Aerobic Blood Culture - Preliminary No growth in 3 days 04/29/18 08:27 Blood - Peripheral Anaerobic Blood Culture - Preliminary No growth in 3 days 04/29/18 08:27 Blood - Peripheral Aerobic Blood Culture - Preliminary No growth in 3 days 04/29/18 08:27 Blood - Peripheral Anaerobic Blood Culture - Preliminary No growth in 3 days 04/29/18 08:30 Abscess - Scrotum Gram Stain - Final 04/29/18 08:30 Abscess - Scrotum Wound Culture - Final Yeast species Assessment and Plan (1) Testicular abscess: Code(s): N45.4 - Abscess of epididymis or testis Status: Acute Onset Date: ~03/16/18 (2) Abscess of scrotum: Code(s): N49.2 - Inflammatory disorders of scrotum Status: Acute Onset Date: ~04/27/18 Plan This patient is a 62 y/o male with a hx of HTN, DLD, who presented to the ED with complaints of right testicular swelling. Symptoms started a month ago and he was dx at that time with Orchitis. He was noticing some drainage of the right testicle and was advised by Dr. Rivas who advised him to come to the hospital. 05/02/18 Patient evaluated today. s/p I and D today. Urology following the patient. Oncology also evaluated the patient, AFP, BHCG, LDH normal Pathology report is pending, likely this is an abscess however cancer cannot be completel ruled out at this point. Follow up all cxs. Hydralazine dose increased for HTN again today, continue Norvasc. Monitor and adjust antihypertensives. Continue Antibiotics. 1. Right testicular mass/Orchitis Patient is being followed by the Urology service. Dr. Amezquita evaluated the patient today and his recs are for the patient to undergo I and D to drain the abscess and reduce the scrotal inflammation. Patient was previously managed by Dr. Diaz for orchitis in 03/2018 and wants to be seen by him tomorrow as per documentation. Follow up Cx and sensitivity of the scrotal drainage. As per urology, pt will need orchiectomy at some point. Tumor markers ordered, if elevated will discuss with Hem/Onc. Will follow up with urology tomorrow. 2. HTN Continue current meds, Hydralazine added. Lovenox for dvt prophylaxis Progress Note: Quality VTE Deep Vein Thrombosis/Pulmonary Embolism Present on Admission: No
--- NOTE | 2018-05-02 20:40 | ECG ---
Date Performed: 05/02/2018 Time Performed: 07:31:45 PTAGE: 62 years EKG: Sinus rhythm SEPTAL MYOCARDIAL INFARCTION , OF INDETERMINATE AGE ABNORMAL ECG PREVIOUS TRACING : 12/28/1996 11.22 Since the previous tracing, no significant change noted DOCTOR: Calista Hyman Interpretating Date/Time 05/02/2018 20:37:57
[2018-05-02] MEDS: Temazepam 15 MG Capsule PO PRN (23:06)
[2018-05-03 05:08] VITALS: TEMP 98.1
[2018-05-03] MEDS: Piperacil/Tazo 3.375 GM Premix 3.375 GM/50 ML PIGGYBACK IV.SIG SCH (06:16)
[2018-05-03 08:39] VITALS: BP 146/95; PULSE 74; RESP 16; O2SAT 97
[2018-05-03] MEDS: Lisinopril 20 MG Tablet PO SCH (08:59)
[2018-05-03] MEDS: amLODIPine 10 MG Tablet PO SCH (08:59)
[2018-05-03] MEDS: hydrALAZINE 25 MG Tablet PO SCH (08:59)
--- NOTE | 2018-05-03 10:58 | P.PNURO ---
Subjective Patient symptoms today: Pt seen and examined. Feeling much better today s/p scrotal debridement and washout. Objective Vital Signs: Vital Signs 05/02/18 11:56 05/02/18 13:46 05/02/18 14:00 Temperature 97.6 F 98.0 F Pulse Rate 86 54 L 67 Respiratory Rate 16 13 13 Blood Pressure 170/90 H 104/64 119/62 Pulse Oximetry 95 97 96 05/02/18 14:15 05/02/18 14:30 05/02/18 14:45 Temperature 98.0 F Pulse Rate 66 67 65 Respiratory Rate 15 14 18 Blood Pressure 145/88 H 156/89 H 156/89 H Pulse Oximetry 97 96 95 05/02/18 17:09 05/02/18 20:00 05/03/18 00:00 Temperature 97.7 F 97.7 F 97.1 F L Pulse Rate 65 63 65 Respiratory Rate 18 20 20 Blood Pressure 124/69 136/81 162/95 H Pulse Oximetry 96 95 96 05/03/18 04:00 05/03/18 08:00 Temperature 98.1 F 98.1 F Pulse Rate 68 74 Respiratory Rate 18 16 Blood Pressure 137/83 146/95 H Pulse Oximetry 94 L 97 Intake & Output 05/02/18 05/03/18 05/03/18 18:59 06:59 18:59 Intake Total 50 / 50 1312.5 / 1312.5 50 / 50 Balance 50 / 50 1312.5 / 1312.5 50 / 50 Weight 69.8 kg Intake: IV 50 / 50 1312.5 / 1312.5 50 / 50 LR 1000 mL Inj 1,000 ML @ 100 1000 / 1000 mls/hr IV.CONT .Q10H [facility] Rx#: [id number] Zosyn 3.375 GM Premix 3.375 gm 50 / 50 50 / 50 50 / 50 In 50 ml @ 100 mls/hr IV.SIG Q8H [facility] Rx#:[id number] Vancomycin Inj 1,250 MG In NS 262.5 / 262.5 Inj 250 ML @ 250 mls/hr IV.SIG Q18H [facility] Rx#:[id number] Other: # Voids 6 2 Date of Last Bowel Movement 04/30/18 Result Diagrams: 04/29/18 08:27 05/03/18 06:19 Medications and IVs: Active Medications Generic Name Dose Route Start Last Admin Trade Name Freq PRN Reason Stop Dose Admin Acetaminophen 650 mg 04/29/18 11:49 Tylenol PO Q4H PRN fever/pain Amlodipine Besylate 10 mg 04/30/18 09:00 05/03/18 08:59 Norvasc PO 10 mg DAILY [facility] Administration Enalaprilat 1.25 mg 04/29/18 17:30 05/02/18 23:06 Vasotec Inj IV.PUSH 1.25 mg Q8H PRN Administration SBP> 180 or DBP > 100 Hydralazine HCl 75 mg 05/02/18 15:00 05/03/18 08:59 Apresoline PO 75 mg TID [facility] Administration Hydromorphone HCl 4 mg 05/02/18 13:54 Dilaudid Pf Inj IV.PUSH Q4H PRN PAIN SCALE 6 TO 10 Piperacillin/Tazobactam/Dextrose 3.375 gm in 50 mls @ 100 mls/hr 04/29/18 14: 00 05/03/18 07:20 Zosyn 3.375 Gm Premix IV.SIG Infused Q8H [facility] Infusion Vancomycin HCl 1,250 mg/ 262.5 mls @ 250 mls/hr 04/29/18 21:00 05/02/18 22:02 Sodium Chloride IV.SIG Infused Q18H [facility] Infusion Lactated Ringer's 1,000 mls @ 100 mls/hr 04/30/18 12:06 05/03/18 00:01 Lr 1000 Ml Inj IV.CONT Infused .Q10H [facility] Infusion Lisinopril 40 mg 04/29/18 13:00 05/03/18 08:59 Prinivil PO 40 mg DAILY [facility] Administration Miscellaneous Information 0 each 05/05/18 02:45 [facility] Ordered Lab Info OTHER 05/05/18 02:46 ONCE ONE Miscellaneous Information 1 each 05/02/18 13:51 [facility] [place] Nursing Information OTHER 05/03/18 13:50 [facility]NS[facility] PRN SEE LABEL COMMENTS Oxycodone/Acetaminophen 2 tab 05/02/18 13:53 Percocet 5/325 Mg PO Q6H PRN PAIN SCALE 1 TO 5 Pharmacy Profile Note 1 each 04/29/18 11:51 Vancomycin Consult Pharmacy OTHER [facility]NS[facility] PRN Pharmacy to dose Pravastatin Sodium 10 mg 04/30/18 09:00 05/03/18 08:59 Pravachol PO 10 mg DAILY [facility] Administration Temazepam 30 mg 04/29/18 21:00 05/02/18 23:06 Restoril PO 30 mg HS PRN Administration INSOMNIA Objective Remarks: Exam same as yesterday except no longer draining pus. 05/01 Abd:soft, nt,nd Right hemiscrotum: induration with pus hardened on surface of scrotal skin; no longer actively draining, NT 05/03 Abd:soft,nt,nd Dressings intact. Assessment and Plan - Assessment (1) Testicular abscess Code(s): N45.4 - Abscess of epididymis or testis Status: Acute Onset Date: ~ 03/16/18 (2) Abscess of scrotum Code(s): N49.2 - Inflammatory disorders of scrotum Status: Acute Onset Date : ~04/27/18 - Plan 04/29/18: The orchitis Rxed one month ago progressed to a testicular abcess now draining thru the scrotum. The testicle and cord should be surgically removed eventually. In the meantime, an I&D would help drain the abcess and reduce the scrotal inflammation. Patient is very reluctant to consider surgical orchiectomy; he prefers I&D so he can continue working. Because Dr. Diaz managed the orchitis in he wants to wait to see Dr. Diaz again on Tuesday to get his opinion. PLAN: will examine and discuss with patient again tomorrow. He is told to not eat breakfast if he wants an I&D in the OR tomorrow. Also, awaiting the C&S of the scrotal drainage. 04/30/18: No significant change from yesterday. PLAN: Dr. Rob Diaz to see patient tomorrow. 05/01 62 y.o male with scrotal abscess Recommend scrotal exploration tomorrow Sitz baths today NPO after MN 05/03 Stable s/p right scrotal debridement and washout Wet/Dry dressing changes daily Continue PO abx F/U one week in office for wound check. Discharge Planning: Per patient and Dr. Diaz.
--- NOTE | 2018-05-03 11:20 | P.DS ---
DS: Providers Date of admission: 04/29/18 11:40 Primary care physician: Elia Calabrese MD Consults: 04/29/18 11:36 Consult to Urology Routine Consulting Provider: Jaret Amezquita [employer]:: Jaret Amezquita Reason for Consultation: Right testicular mass. Right orchitis. Notified:: Service Spoke with:: JAVIER Date Notified:: 04/29/18 Time Notified:: 11:42 Ordering Provider: RANDY 05/01/18 08:34 Consult to Oncology Routine Consulting Provider: Consuelo Shaw Reason for Consultation: Right testicular abscess/Mass concern for neoplasm Notified:: Service Spoke with:: Date Notified:: 05/01/18 Time Notified:: 08:44 Ordering Provider: CRISTOFER Brief History from admission: patient is a 62 y/o male with history of hypertension and dyslipidemia who presented with infection of the right scrotum. he says that it started about a month and half ago when he was diagnosed with orchitis. he says that he was treated with IV antibiotics and then he was placed on a month of Cipro which he finished about ten seven-eight days ago. he says that few days ago he noticed some drainage from the right scrotum for which he saw who advised him to come to the hospital. he denies any fever,chills or pain. DS: Diagnosis Discharge Diagnosis (1) Testicular abscess: Status: Acute (2) Abscess of scrotum: Status: Acute DS: Summary 05/03/18 Patient evaluated today. s/p I and D yesterday. Urology following the patient. Cleared for discharge with PO antibiotics. Culture and sensitivity to be followed up. Patient given prescription for po cipro and flagyl. Oncology also evaluated the patient, AFP, BHCG, LDH normal Pathology report is pending, likely this is an abscess however cancer cannot be completely ruled out at this point. Follow up all cxs. Continue antihypertensives at discharge. Patient advised to return to the ED if he begins to experience any fevers or chills or any worsening symptoms of his scrotum. 1. Right testicular mass/Orchitis Patient is being followed by the Urology service. Dr. Amezquita evaluated the patient today and his recs are for the patient to undergo I and D to drain the abscess and reduce the scrotal inflammation. Patient was previously managed by Dr. Diaz for orchitis in 03/2018 and wants to be seen by him tomorrow as per documentation. Follow up Cx and sensitivity of the scrotal drainage. As per urology, pt will need orchiectomy at some point. Tumor markers ordered, if elevated will discuss with Hem/Onc. Will follow up with urology tomorrow. 2. HTN Continue current meds, Hydralazine added. Time Spent with Patient Total time spent providing and/or coordinating discharge services: Greater than 30 minutes Quality: VTE Deep Vein Thrombosis/Pulmonary Embolism Present on Admission: No Exam Narrative Exam Narrative: S1S2 CTA b/l abd soft, nontender, normal bowel sounds Right testicle with gauze s/p drainage. No palpable inguinal lymphadenopathy No neuro deficits. Results Pending studies at discharge: Pending at discharge 05/02/18 16:42 Surgical [PTH] Routine Labs on day of discharge: Labs from last 24 hours 05/03/18 06:19 Creatinine 1.27 Estimated GFR 57 L Preliminary micro results at discharge 04/29/18 08:27 Aerobic Blood Culture - Preliminary Blood - Peripheral No growth in 4 days Anaerobic Blood Culture - Preliminary No growth in 4 days 04/29/18 08:27 Aerobic Blood Culture - Preliminary Blood - Peripheral No growth in 4 days Anaerobic Blood Culture - Preliminary No growth in 4 days Impressions ITS Impressions Scrotum Ultrasound 04/29/18 08:18 CONCLUSION: 1. Abnormal right testicle. Neoplasm is suspected 2. Normal left testicle Discharge Plan Discharge Disposition Patient Disposition: Discharge Home Discharge Order Discharge Orders: Discharge Order (Routine); Ordered 05/03/18 Ordered By: Kymberly Monterroso Physicians Team ED Provider: Efrain Lee Primary Care Provider: Elia Calabrese Attending Provider: Kymberly Monterroso Other Providers: Jaret Amezquita ; Consuelo Shaw Rxs /Orders / Referrals /Forms Prescriptions: New metronidazole [Flagyl] 500 mg tablet 500 mg PO Q8H Qty: 21 RF: 0 ciprofloxacin HCl [Cipro] 500 mg tablet 500 mg PO Q12H Qty: 14 RF: 0 Continue benazepril 40 mg Tablet 40 mg PO BID RF: 0 lovastatin 10 mg Tablet 10 mg PO DAILY RF: 0 temazepam 30 mg Capsule 30 mg PO HS PRN (Reason: Insomnia) RF: 0 amlodipine 10 mg tablet 10 mg PO DAILY Qty: 30 RF: 0 Referrals: Elia Calabrese MD [Primary Care Provider] - 05/15/18 10:45 am (APPOINTMENT SCHEDULED FOR 05/15/18 AT 10:45AM ) Rob Diaz DO [UROLOGY] - See Instructions Discharge Instructions Additional Instructions: Follow up with urology in one week. Cx and sens. Status ED Status: Left Department
--- NOTE | 2018-05-03 23:40 | P.PNONC ---
Subjective Interval history: Patient is feeling much better after surgery yesterday. Objective Vital Signs/Intake & Output: Vital Signs 05/03/18 00:00 05/03/18 04:00 05/03/18 08:00 Temperature 97.1 F L 98.1 F 98.1 F Pulse Rate 65 68 74 Respiratory Rate 20 18 16 Blood Pressure 162/95 H 137/83 146/95 H Pulse Oximetry 96 94 L 97 Intake & Output 05/03/18 05/03/18 05/04/18 06:59 18:59 06:59 Intake Total 1312.5 / 1312.5 50 / 50 Balance 1312.5 / 1312.5 50 / 50 Weight 69.8 kg Intake: IV 1312.5 / 1312.5 50 / 50 LR 1000 mL Inj 1,000 ML @ 100 1000 / 1000 mls/hr IV.CONT .Q10H [facility] Rx#: [id number] Zosyn 3.375 GM Premix 3.375 gm 50 / 50 50 / 50 In 50 ml @ 100 mls/hr IV.SIG Q8H [facility] Rx#:[id number] Vancomycin Inj 1,250 MG In NS 262.5 / 262.5 Inj 250 ML @ 250 mls/hr IV.SIG Q18H [facility] Rx#:[id number] Other: # Voids 2 Result Diagrams: 04/29/18 08:27 05/03/18 06:19 Laboratory Results: Laboratory Results - last 24 hr 05/03/18 06:19 Creatinine 1.27 Estimated GFR 57 L Culture Results: Microbiology 04/29/18 08:27 Aerobic Blood Culture - Preliminary Blood - Peripheral No growth in 4 days Anaerobic Blood Culture - Preliminary No growth in 4 days 04/29/18 08:27 Aerobic Blood Culture - Preliminary Blood - Peripheral No growth in 4 days Anaerobic Blood Culture - Preliminary No growth in 4 days 04/29/18 08:30 Gram Stain - Final Abscess - Scrotum Wound Culture - Final Yeast species Objective Remarks: GENERAL: Well-nourished, well-developed patient. SKIN: Warm and dry. HEAD: Normocephalic. EYES: No scleral icterus. No injection or drainage. NECK: Supple, trachea midline. No JVD or lymphadenopathy. LYMPHATIC: No adenopathy. CARDIOVASCULAR: Regular rate and rhythm without murmurs. RESPIRATORY: Breath sounds equal bilaterally. No accessory muscle use. GASTROINTESTINAL: Abdomen soft, non-tender, nondistended. EXTREMITIES: No cyanosis, or edema. My mom to NEUROLOGICAL: No obvious focal deficit. Awake, alert, and oriented x3. PSYCHIATRIC: Appropriate mood and affect; insight and judgment normal. Assessment/Plan (1) Testicular abscess Code(s): N45.4 - Abscess of epididymis or testis Status: Acute - Plan Operative findings from yesterday noted Patient underwent debridement and drainage of the testicular abscess. No gross evidence of malignancy noted per Dr. Diaz. Dr. Diaz was present at the bedside. I have discussed the case with him. Since patient is feeling much better after the I&D he is going to be discharged today. Pathology report is still pending. I advised the patient that there is no clinical evidence of malignancy noted at this time. If Dr. Diaz urologist fine testicular cancer then he can call our office to make an appointment otherwise I am available as needed. His is my patient and sometimes he comes with her for the appointments Okay to discharge from my standpoint
[2018-05-05] MEDS ORDERED: Pharmacy Ordered Lab Info OTHER ONE (02:45)
== END 2018-05-03 12:27 | disposition home or self-care (01) | DRG 712 ==
LOC: NEPE 07:48 → NEDA 11:40 → N07 16:25
PROVIDERS: ADMIT Hospitalist; ATTEND Hospitalist
PROC: [UNRECOGNIZED PROCEDURE] (2018-05-02 12:47)
DX: N49.2 Inflammatory disorders of scrotum; I10 Essential (primary) hypertension; E78.5 Hyperlipidemia, unspecified; N45.4 Abscess of epididymis or testis
CPT/HCPCS: 76870; 80053; 80202; 81001; 82105; 82565; 83615; 84702; 85025; 87040; 87070; 87205; 88305; 90765; 90767; 93005; 93975; 96365; 96367; 99285; J1100; J1170; J2250; J2270; J2405; J2543; J2704; J3010; J3370; J7030; J7050; J7120